=== PATIENT | female | born 1985 ===

== ENCOUNTER 2019-03-29 19:32 | Emergency (ER) | payer SELFPAY ==
[~2019-03-29] VITALS: Ht 165.1 cm; Wt 86.4 kg
[2019-03-29 19:52] VITALS: BP 130/82
== END 2019-03-29 20:20 | disposition left against medical advice (07) ==
LOC: EMS 19:32
DX: M54.9 Dorsalgia, unspecified (principal); R10.9 Unspecified abdominal pain; Z53.21 Procedure and treatment not carried out due to patient leaving prior to being seen by health care provider